=== PATIENT | male | born 1980 | race Caucasian/White ===

== ENCOUNTER 2023-12-27 20:15 | Emergency (ER) | payer BC, SELFPAY ==
--- NOTE | ~2023-12-27 | XR_ITS ---
EXAMINATION: XR chest 2V Exam Date/Time: 12/27/2023 20:35 VETERINARY TECHNOLOGY INSTRUCTOR HISTORY: STERNAL CHEST PAIN SINCE 1300 HRS TODAY. Comparison: 01/17/2018. RESULT: Lines, tubes, and devices: None. Lungs and pleura: Clear. Cardiomediastinal silhouette: Stable. Other: No acute osseous or upper abdominal finding. IMPRESSION: No acute cardiopulmonary process. Reviewed, dictated and finalized at location K. RINARY TECHNOLOGY INSTRUCTOR
[2023-12-27 20:15] VITALS: PULSE 78; O2SAT 98
[2023-12-27] MEDS: ASPIRIN 81 MG CHEWABLE TABLET 324 MG PO (20:19)
--- NOTE | 2023-12-27 20:20 | ECG_ITS ---
Test Date: 2023-12-27 20:16:22 Measurements Intervals [place] Rate: 99 P: 71 [place]: 164 QRS: 36 QRSD: 104 T: -87 QT: 326 QTc: 420 Interpretive Statements SINUS RHYTHM MARKED ST DEPRESSION IN ANTEROLAT/INF LEADS, CONSIDER SUBENDOCARDIAL INJURY BASELINE WANDER- I, II, III, AVR, AVL, AVF, V1, V3-V6 ABNORMAL ECG No previous ECG available for comparison Electronically Signed On 12-28-2023 07:00:38 STEAMER [employer]ANDY by Nicholas Begum D.O.
--- NOTE | 2023-12-27 20:20 | PC.NURSE ---
Dr Mitchell read first EKG, wanted a posterior EKG to make sure its not a posterior [place] prior to Nitro administration.
[2023-12-27 20:30] VITALS: BP 148/108; BP 170/123; PULSE 80; PULSE 89; RESP 18; RESP 20; TEMP 36.7; O2SAT 89; O2SAT 90
--- NOTE | 2023-12-27 20:33 | ECG_ITS ---
Test Date: 2023-12-27 20:24:34 Measurements Intervals [place] Rate: 76 P: 28 NE: 167 QRS: 16 QRSD: 95 T: -78 QT: 350 QTc: 395 Interpretive Statements SINUS RHYTHM INCOMPLETE RIGHT BUNDLE BRANCH BLOCK LOW QRS VOLTAGE IN PRECORDIAL LEADS ST-T WAVE ABNORMALITY IN ANTEROLAT/INF LEADS- CONSIDER SUBENDOCARDIAL INJURY BASELINE ARTIFACT- I, II, III, AVR, V1-V5 ABNORMAL ECG COMPARED WITH PRIOR ECG 12-27-23 20:16 NO SIGNIFICANT CHANGE Electronically Signed On 12-28-2023 06:59:48 BUSINESS MANAGEMENT INTERN by Nicholas Begum D.O.
--- NOTE | 2023-12-27 20:34 | ED_ITS ---
HPI - General Adult General Chief complaint: Chest Pain Stated complaint: Chest Pain Time Seen by Provider: 12/27/23 20:17 History of Present Illness HPI narrative: Macario is a 43M with a PMH of tobacco abuse and a family history of early cardiac disease that presented to the ED with chest pain. He has been having pain off and on for weeks. However, for the last 4 hours he had pain radiate to his arms he felt flushed, lightheaded, nauseated and very anxious. Related Data Home Medications Medication Instructions Recorded Confirmed clonazepam 0.5 mg tablet 0.5 mg PO TID PRN Anxiety 12/27/23 12/27/23 cyanocobalamin (vitamin B-12) 1,500 mcg PO DAILY 12/27/23 12/27/23 1,500 mcg chewable tablet ergocalciferol (vitamin D2) 50 mcg 50 mcg PO DAILY 12/27/23 12/27/23 (2,000 unit) capsule fingolimod 0.5 mg capsule 0.5 mg PO DAILY 12/27/23 12/27/23 rosuvastatin 5 mg tablet 5 mg PO DAILY 12/27/23 12/27/23 sertraline 100 mg tablet 100 mg PO DAILY 12/27/23 12/27/23 telmisartan 80 mg tablet 80 mg PO BID 12/27/23 12/27/23 Allergies Allergy/AdvReac Type Severity Reaction Status Date / Time No Known Allergies Allergy Verified 12/27/23 20:35 Review of Systems Review of Systems: All systems reviewed & are unremarkable except as noted in HPI and below PMFSH Social History Social History Smoking status: Former smoker Tobacco type: cigarettes Alcohol intake: never Substance use: never Do You Feel Safe in your Home?: Yes Lack of Transportation: No Lack of Food: Never True Current Housing: I Have Housing Concerned About Future Housing: No Difficulty Paying Gas/Electric Bills: No Difficulty Paying for Meds: No Currently Unemployed: No Education: Associate Degree Difficulty w/ Childcare or Family Care: No Spiritual care concerns: No Exam Const: General: cooperative, well developed, alert, awake and Physically active Orientation/consciousness: oriented to person, oriented to place and oriented to time Other: in moderate distress HENMT: Head: normal to inspection, normocephalic and atraumatic Ears: hearing grossly normal bilaterally and external ears normal Face/Nose/Sinus: Normal external nose present Eyes: General: appearance normal, both eyes and all related structures Periorbital: periorbital findings normal Sclera: sclerae normal Pupils: Equal, round and reactive pupils present Neck: Neck: normal visual inspection Chest: Chest palpation & inspection: normal inspection of the chest Resp: Effort & Inspection: normal respiratory effort, able to speak in complete sentences and tachypneic Auscultation: clear to auscultation bilaterally Cardio: Jugular venous distension: no JVD Rate: regular rate Other: Tachycardia GI: Inspection: normal to inspection GI Palp: Yes Soft to palpation Auscultation: normal bowel sounds Skin: General skin exam: normal color and no rashes or lesions noted Neuro: General: oriented to person, oriented to place and oriented to time Cranial nerves: Yes Equal, round and reactive pupils present Extrem: General: normal to inspection Course Course Emergency Course: Given aspirin and morphine. Ordered labs. EKG showed sinus tachycardia with a rate of 99, marked ST depression in V2-V4 and the inferior leads We contacted cardiology security system sales consultant Dr. Castaneda and sent him the EKG. 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 Vital Signs Vital signs: Vital Signs Pulse Rate 78 12/27/23 20:15 Pulse Oximetry 98 12/27/23 20:15 Oxygen Flow Rate 2 12/27/23 20:15 Temperature 98.1 F 12/27/23 20:30 Pulse Rate 82 12/27/23 21:00 Respiratory Rate 20 12/27/23 21:00 Blood Pressure 129/104 H 12/27/23 21:00 Pulse Oximetry 94 12/27/23 21:00 Oxygen Delivery Nasal Cannula 12/27/23 21:00 Oxygen Flow Rate 4 12/27/23 21:00 Medical Decision Making Vital Signs Vital Signs: Vital Signs Pulse Rate 78 12/27/23 20:15 Pulse Oximetry 98 12/27/23 20:15 Oxygen Flow Rate 2 12/27/23 20:15 Temperature 98.1 F 12/27/23 20:30 Pulse Rate 82 12/27/23 21:00 Respiratory Rate 20 12/27/23 21:00 Blood Pressure 129/104 H 12/27/23 21:00 Pulse Oximetry 94 12/27/23 21:00 Oxygen Delivery Nasal Cannula 12/27/23 21:00 Oxygen Flow Rate 4 12/27/23 21:00 Lab Data 12/27/23 20:37 12/27/23 20:37 Labs: Lab Results 12/27/23 Range/Units 20:37 WBC 9.0 (4.8-10.8) K/mm3 RBC 6.16 H (4.70-6.10) M/mm3 Hgb 17.1 (14.0-18.0) g/dL Hct 49.4 (40.0-54.0) % MCV 80.2 (78.0-102.0) fL MCH 27.8 (27.0-31.0) pg MCHC 34.6 (32-36) g/dL RDW 13.0 (11.6-14.4) % Plt Count 202 (150-420) K/mm3 MPV 11.7 H (8.7-11.0) fl Immature Gran % (Auto) 0.6 H (0.0-0.0) % Neut % (Auto) 88.2 H (50.0-70.0) % Lymph % (Auto) 3.3 L (18.0-42.0) % [place] % (Auto) 6.6 (2.0-11.0) % Eos % (Auto) 0.9 L (1.0-6.0) % Baso % (Auto) 0.4 (0.0-1.0) % Lymph # (Auto) 0.30 L (1.10-4.50) K/mm3 [place] # (Auto) 0.59 (0.10-0.90) K/mm3 Eos # (Auto) 0.08 (0.02-0.50) K/mm3 Baso # (Auto) 0.04 (0.00-0.10) K/mm3 Abs Immat Gran (auto) 0.05 H (0.00-0.00) K/mm3 Absolute Neuts (auto) 7.93 H (1.70-7.20) K/mm3 Absolute Nucleated RBC 0.00 (0.00-0.00) K/mm3 Nucleated RBC % 0.0 (0-0.0) % PT 9.9 (9.50-12.1) Seconds INR 0.9 APTT 28.9 (23.9-30.70) Sec Sodium 142 (136-145) mmol/L Potassium 3.7 (3.5-5.1) mmol/L Chloride 102 (98-108) mmol/L Carbon Dioxide 30 (21-32) mmol/L Anion Gap 10 (4-12) mmol/L BUN 13 (7-18) mg/dL Creatinine 1.07 (0.70-1.30) mg/dL Estim Creat Clear Calc 90 ml/min Estimated GFR > 60 (59 - ) Glucose 157 H (70-99) mg/dL Calculated Osmolality 297 H (285-295) mOsm/kg Calcium 9.0 (8.5-10.1) mg/dL Total Bilirubin 0.5 (0.00-1.00) mg/dL AST 28 (15-37) U/L ALT 70 H (16-63) U/L Alkaline Phosphatase 73 (46-116) U/L Troponin I 719.4 H* (0.00-60.4) ng/L NT-Pro-B Natriuret Pep 362 H (0-125) pg/mL Total Protein 7.6 (6.4-8.2) g/dL Albumin 3.9 (3.4-5.0) g/dL Lipase 56 (16-77) U/L Discharge Plan Discharge Clinical Impression: Myocardial infarction Patient Disposition: Acute Care Hospital Condition: Critical Prescriptions: No Action clonazepam 0.5 mg tablet 0.5 mg PO TID PRN (Reason: Anxiety) sertraline 100 mg tablet 100 mg PO DAILY telmisartan 80 mg tablet 80 mg PO BID rosuvastatin 5 mg tablet 5 mg PO DAILY fingolimod 0.5 mg capsule 0.5 mg PO DAILY ergocalciferol (vitamin D2) 50 mcg (2,000 unit) Capsule 50 mcg PO DAILY cyanocobalamin (vitamin B-12) 1,500 mcg Tablet,Chewable 1,500 mcg PO DAILY Follow-up/Referrals: UNKNOWN,DOCTOR [Non-Staff] -
[2023-12-27 20:46] LABS: Basophils Absolute Auto 0.04 K/mm3 (0.00-0.10); Basophils Percent Auto 0.4 % (0.0-1.0); Eosinophils Absolute Auto 0.08 K/mm3 (0.02-0.50); Eosinophils Percent Auto 0.9 % (1.0-6.0); Hematocrit 49.4 % (40.0-54.0); Hemoglobin 17.1 g/dL (14.0-18.0); Immature Granulocyte Absolute 0.05 K/mm3 (0.00-0.00); Immature Granulocyte Percent A 0.6 % (0.0-0.0); Lymphocytes Percent Auto 3.3 % (18.0-42.0); Mean Corpuscular HGB Conc 34.6 g/dL (32-36); Mean Corpuscular Hemoglobin 27.8 pg (27.0-31.0); Mean Corpuscular Volume 80.2 fL (78.0-102.0); Mean Platelet Volume 11.7 fl (8.7-11.0); Monocytes Absolute Auto 0.59 K/mm3 (0.10-0.90); Monocytes Percent Auto 6.6 % (2.0-11.0); Neutrophils Absolute Auto 7.93 K/mm3 (1.70-7.20); Neutrophils Percent Auto 88.2 % (50.0-70.0); Platelet Count Result 202 K/mm3 (150-420); Red Blood Count 6.16 M/mm3 (4.70-6.10)
[2023-12-27 20:50] VITALS: BP 139/104; PULSE 83; RESP 18; O2SAT 94
[2023-12-27] MEDS: MORPHINE SULFATE (*CRX) 4 MG/ML INJ IV PUSH (20:53)
[2023-12-27 20:56] LABS: INR 0.9; Prothrombin Time 9.9 Seconds (9.50-12.1)
[2023-12-27] MEDS: HEPARIN SODIUM 5,000 UNITS/ML VIAL 4000 UNITS IV PUSH (20:57)
[2023-12-27] MEDS: HEPARIN SOD/D5W 100 UNITS/ML 25,000 UNITS/250 ML BAG 10 UNITS IV CONT (20:57)
[2023-12-27 21:00] VITALS: BP 129/104; PULSE 82; RESP 20; O2SAT 94
[2023-12-27 21:09] LABS: Alanine Aminotransferase 70 U/L (16-63); Albumin Level 3.9 g/dL (3.4-5.0); Alkaline Phosphatase 73 U/L (46-116); Anion Gap 10 mmol/L (4-12); Aspartate Amino Transferase 28 U/L (15-37); Bilirubin,Total 0.5 mg/dL (0.00-1.00); Blood Urea Nitrogen 13 mg/dL (7-18); Carbon Dioxide 30 mmol/L (21-32); Chloride 102 mmol/L (98-108); Estimated CRCL calculation 90 ml/min; Estimated Glomerular Filt Rate > 60; Glucose 157 mg/dL (70-99); Lipase 56 U/L (16-77); NT Pro B Type Natriuretic Pept 362 pg/mL (0-125); Osmolality Calculated 297 mOsm/kg (285-295); Potassium 3.7 mmol/L (3.5-5.1); Sodium 142 mmol/L (136-145); Total Protein 7.6 g/dL (6.4-8.2)
[2023-12-27 21:21] LABS: Troponin I 719.4 ng/L (0.00-60.4)
[2023-12-27 21:35] LABS: Partial Thromboplastin Time 28.9 Sec (23.9-30.70)
--- NOTE | 2023-12-27 21:55 | PM.CNCAR ---
Assessment and Plan Assessment and plan (1) NSTEMI (non-ST elevated myocardial infarction): Code(s): I21.4 - Non-ST elevation (NSTEMI) myocardial infarction Status: Acute Plan NSTEMI high risk was recurrent chest pain and diffuse EKG changes hHypertension controlled plan Heparin Aspirin Statin Ticagrelor Emergency left heart catheterization Echocardiogram History of Present Illness History of Present Illness Consult date/time: 12/27/23 21:55 Reason For Visit: Chest Pain Narrative: 43-year-old male patient presents also with acute episode of chest pain started this morning at 11:00 a.m.. Chest pain was severe retrosternal radiating to both arms. Chest pain was pressure-like was no precipitating or relieving factors. Pain associated with nausea Chest pain lasts for 1 hour and resolved spontaneously before coming back again. Chest pain has been recurrent for several times. On arrival to ED an outpatient patient was having severe chest pain an EKG showing ST depression anterior leads. Review of Systems Review of Systems: All systems reviewed & are unremarkable except as noted in HPI and below Meds Home Medications and Allergies Home Medications Medication Instructions Recorded Confirmed Type clonazepam 0.5 mg tablet 0.5 mg PO PRN 12/27/23 12/27/23 History rosuvastatin 5 mg tablet 5 mg PO DAILY 12/27/23 12/27/23 History sertraline 100 mg tablet 100 mg PO DAILY 12/27/23 12/27/23 History telmisartan 80 mg tablet 80 mg PO DAILY 12/27/23 12/27/23 History Allergies Allergy/AdvReac Type Severity Reaction Status Date / Time No Known Allergies Allergy Verified 12/27/23 20:35 Vital Signs Vital Signs - 24 hr 12/27/23 20:30 12/27/23 20:15 12/27/23 20:15 Temperature 36.7 C Pulse Rate 80 78 Respiratory Rate 20 Blood Pressure 170/123 H Pulse Oximetry 89 L 98 Oxygen Delivery Room Air Oxygen Flow Rate 2 12/27/23 20:30 12/27/23 20:50 12/27/23 21:00 Temperature Pulse Rate 89 83 82 Respiratory Rate 18 18 20 Blood Pressure 148/108 H 139/104 H 129/104 H Pulse Oximetry 90 94 94 Oxygen Delivery Nasal Cannula Nasal Cannula Nasal Cannula Oxygen Flow Rate 4 4 4 Exam Const: General: comfortable and no acute distress Other: Able to lie flat HENMT: Face/Nose/Sinus: Normal nares present and no epistaxis Mouth: Yes moist mucous membranes Eyes: Sclera: sclerae normal Pupils: Equal, round and reactive pupils present Neck: Neck: supple and no JVD Carotids: no bruits Resp: Auscultation: clear to auscultation bilaterally and lung sounds not diminished Other: No chest wall tenderness Cardio: Rate: regular rate Rhythm: regular rhythm Heart sounds: no gallops, no murmurs and no rubs GI: GI Palp: Yes Soft to palpation and No Tenderness to palpation present (GI) Auscultation: normal bowel sounds Skin: General skin exam: normal color, rashes and/or lesions noted and no erythema Other: Warm Neuro: Cranial nerves: Yes Equal, round and reactive pupils present Speech: normal speech Other: No obvious focal deficit or facial asymmetry Extrem: General: no edema Other: Normal capillary refills Intact distal pulses. Results Labs and Meds 12/27/23 20:37 12/27/23 20:37 Lab results: Cardiac Enzymes 12/27/23 Range/Units 20:37 AST 28 (15-37) U/L Troponin I 719.4 H* (0.00-60.4) ng/L Coagulation 12/27/23 Range/Units 20:37 PT 9.9 (9.50-12.1) Seconds APTT 28.9 (23.9-30.70) Sec CBC 12/27/23 Range/Units 20:37 WBC 9.0 (4.8-10.8) K/mm3 RBC 6.16 H (4.70-6.10) M/mm3 Hgb 17.1 (14.0-18.0) g/dL Hct 49.4 (40.0-54.0) % Plt Count 202 (150-420) K/mm3 Lymph # (Auto) 0.30 L (1.10-4.50) K/mm3 [place] # (Auto) 0.59 (0.10-0.90) K/mm3 Eos # (Auto) 0.08 (0.02-0.50) K/mm3 Baso # (Auto) 0.04 (0.00-0.10) K/mm3 Comprehensive Metabolic Panel 12/27/23 Range/Units 20:37 Sodium 142 (136-145) mmol/L Potassium 3.7 (3.5-5.1) mmol/L Chloride 102 (98-108) mmol/L Carbon Dioxide 30 (21-32) mmol/L BUN 13 (7-18) mg/dL Creatinine 1.07 (0.70-1.30) mg/dL Glucose 157 H (70-99) mg/dL Calcium 9.0 (8.5-10.1) mg/dL AST 28 (15-37) U/L ALT 70 H (16-63) U/L Alkaline Phosphatase 73 (46-116) U/L Total Protein 7.6 (6.4-8.2) g/dL Albumin 3.9 (3.4-5.0) g/dL Patient Weight 12/27/23 23:59 Weight 101.6 kg
== END 2023-12-27 21:15 | disposition short-term general hospital (02) ==
PROVIDERS: Emergency Provider Family Medicine
DX: I21.9 Acute myocardial infarction, unspecified (principal); Z79.899 Other long term (current) drug therapy; Z87.891 Personal history of nicotine dependence
CPT/HCPCS: 36415; 71046; 80053; 83690; 83880; 84484; 85025; 85610; 85730; 93005; 96365; 96375; 99285; A9270; J1644; J2270

== ENCOUNTER 2023-12-27 22:00 | Inpatient (IN) | payer BC, SELFPAY ==
[2023-12-27] VITALS (9 sets, daily range): BP systolic 116–137; BP diastolic 67–88; PULSE 85–89; RESP 12–22; TEMP 36.8; O2SAT 90–96
--- NOTE | 2023-12-27 22:39 | P.CONCA_ITS ---
Assessment and Plan Assessment and plan (1) NSTEMI (non-ST elevated myocardial infarction): Code(s): I21.4 - Non-ST elevation (NSTEMI) myocardial infarction Status: Acute Plan NSTEMI currently chest pain free but pain was recurrent earlier with EKG changes concerning for multivessel disease HTN Plan Emergency after consideration Heparin Aspirin Integrilin Statin History of Present Illness History of Present Illness Consult date/time: 12/27/23 22:39 Reason For Visit: NSTEMI Narrative: 43-year-old male patient presents also with acute episode of chest pain started this morning at 11:00 a.m.. Chest pain was severe retrosternal radiating to both arms. Chest pain was pressure-like was no precipitating or relieving factors. Pain associated with nausea Chest pain lasts for 1 hour and resolved spontaneously before coming back again. Chest pain has been recurrent for several times. On arrival to ED an outpatient patient was having severe chest pain an EKG showing ST depression anterior leads. Review of Systems Review of Systems: All systems reviewed & are unremarkable except as noted in HPI and below Meds Home Medications and Allergies Home Medications Medication Instructions Recorded Confirmed Type clonazepam 0.5 mg tablet 0.5 mg PO PRN 12/27/23 12/27/23 History rosuvastatin 5 mg tablet 5 mg PO DAILY 12/27/23 12/27/23 History sertraline 100 mg tablet 100 mg PO DAILY 12/27/23 12/27/23 History telmisartan 80 mg tablet 80 mg PO DAILY 12/27/23 12/27/23 History Allergies Allergy/AdvReac Type Severity Reaction Status Date / Time No Known Allergies Allergy Verified 12/27/23 20:35 Exam Const: General: comfortable and no acute distress Other: Able to lie flat HENMT: Face/Nose/Sinus: Normal nares present and no epistaxis Mouth: Yes moist mucous membranes Eyes: Sclera: sclerae normal Pupils: Equal, round and reactive pupils present Neck: Neck: supple and no JVD Carotids: no bruits Resp: Auscultation: clear to auscultation bilaterally and lung sounds not diminished Other: No chest wall tenderness Cardio: Rate: regular rate Rhythm: regular rhythm Heart sounds: no gallops, no murmurs and no rubs GI: GI Palp: Yes Soft to palpation and No Tenderness to palpation present (GI) Auscultation: normal bowel sounds Skin: General skin exam: normal color, rashes and/or lesions noted and no e rythema Other: Warm Neuro: Cranial nerves: Yes Equal, round and reactive pupils present Speech: normal speech Other: No obvious focal deficit or facial asymmetry Extrem: General: no edema Other: Normal capillary refills Intact distal pulses.
--- NOTE | 2023-12-27 22:41 | WPDCARDPROC ---
Cardiac Cath Procedure Note Date of procedure:: 12/27/23 Performing physician:: Luis Felipe Caceres MD Indication:: NSTEMI Brief clinical history:: presented with recurrent chest pain Procedure Procedure performed:: [place] and coronary angiogram Insertion of IABP Sedation/Medication given:: moderate sedation in presence of RN under my supervision and used versed 1 mg of versed and 100 mch of fentanyl with continuous monitoring of vital signs, O2 saturation and EKG. 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 LCX: distal LCX 90% stenosis. 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
--- NOTE | 2023-12-27 23:20 | ECG_ITS ---
Test Date: 2023-12-27 23:28:58 Measurements Intervals [place] Rate: 83 P: 1 [place]: 132 QRS: 24 QRSD: 89 T: 89 QT: 374 QTc: 442 Interpretive Statements SINUS RHYTHM NONSPECIFIC ST & T-WAVE ABNORMALITY- INF/HIGH LAT LEADS BASELINE ARTIFACT- V6 BORDERLINE ECG Compared to ECG 12/27/2023 20:24:34 Possible ischemia no longer present Electronically Signed On 12-28-2023 06:56:00 PRINT PRODUCTION COORDINATOR by Nicholas Begum D.O.
[2023-12-27] MEDS: NITROGLYCERIN/D5W 200 MCG/ML 50 MG/250 ML BTL IV CONT (23:30)
[2023-12-27] MEDS: EPTIFIBATIDE 20 MG/10 ML VIAL 18 MG IV PUSH (23:30)
[2023-12-27] MEDS: EPTIFIBATIDE 0.75 MG/ML 75 MG/100 ML VIAL 16.26 MG IV CONT (23:30)
[2023-12-28] VITALS (17 sets, daily range): BP systolic 67–143; BP diastolic 50–80; PULSE 70–95; RESP 12–20; TEMP 36.8; O2SAT 94–97
[2023-12-28 00:01] LABS: INR 1.1; Prothrombin Time 14.7 Seconds (11.1-14.7)
[2023-12-28 00:21] LABS: Basophils Percent Auto 0.3 % (0.2-1.2); Eosinophils Percent Auto 0.2 % (0-4.4); Hematocrit 44.4 % (42.0-52.0); Hemoglobin 15.5 g/dL (14.0-18.0); Immature Granulocyte Absolute 0.05 K/mm3 (0.00-0.031); Immature Granulocyte Percent A 0.4 % (0-0.5); Lymphocytes Percent Auto 0.8 % (18.3-44.2); Mean Corpuscular HGB Conc 34.9 g/dl (32-36); Mean Corpuscular Hemoglobin 28.3 pg (26-34); Mean Platelet Volume 11.5 fl (7.4-10.4); Monocytes Absolute Auto 0.6 K/mm3 (0.1-0.6); Monocytes Percent Auto 4.7 % (2.6-8.5); Neutrophils Absolute Auto 11.3 K/mm3 (1.3-6.7); Neutrophils Percent Auto 93.6 % (45.5-73.1); Platelet Count Result 183 k/mm3 (150-375); Red Blood Count 5.48 M/mm3 (4.6-6.20); Red Cell Distribution Width 13.2 % (11.5-14.5); White Blood Count 12.1 K/mm3 (4.5-10.0)
[2023-12-28] MEDS: HEPARIN SOD/D5W 100 UNITS/ML 25,000 UNITS/250 ML BAG 10 UNITS IV CONT (00:23)
--- NOTE | 2023-12-28 00:29 | PC.NURSE ---
attempt call report to [facility] informed that bed may to going to a patient in house. report not given at this time
[2023-12-28 00:30] LABS: Partial Thromboplastin Time > 200.0 Seconds (22.3-36.8)
[2023-12-28] MEDS: SODIUM CHLORIDE 0.9% IV 1,000 ML 125 ML IV CONT (00:32)
--- NOTE | 2023-12-28 00:34 | ADMGEN ---
This patient, Macario Hughes, was admitted to Intensive Care Unit-8 on 12/27/23 at 2309. Patient/family oriented to hospital policies and general routines including ID bracelet, bed and alarms, visiting hours, pain management, procedures, bathroom and other care routines, personal items, smoking policy, room service/diet, and visiting hours. Information on how to activate the Rapid Response Team has been discussed. Patient/Family are encouraged to report perceived risks to care and to ask questions if they do not understand what they are told or what they should do.
--- NOTE | 2023-12-28 00:35 | PC.NURSE ---
[facility] ambulance put on hold due to [facility] nurse Shell saying there is a current rapid at [facility] that may take bed.
[2023-12-28 01:01] LABS: Alanine Aminotransferase 63 U/L (6-50); Alkaline Phosphatase 64 U/L (38-126); Anion Gap 8 mmol/L (4-12); Aspartate Amino Transferase 50 U/L (17-59); Bilirubin,Total 0.7 mg/dL (0.2-1.3); Blood Urea Nitrogen 13 mg/dL (9-20); Calcium 8.7 mg/dL (8.4-10.2); Carbon Dioxide 25 mmol/L (22-30); Chloride 103 mmol/L (98-107); Cholesterol 179 mg/dL (0-200); Estimated CRCL calculation 116 ml/min; Estimated Glomerular Filt Rate > 60; Glucose 129 mg/dL (65-110); HDL Direct 30 mg/dL; Potassium 4.1 mmol/L (3.4-5.0); Sodium 136 mmol/L (137-145); Triglycerides 81 mg/dL (<150)
[2023-12-28 01:13] LABS: LDL Cholesterol Direct 125 mg/dL
--- NOTE | 2023-12-28 02:15 | PC.NURSE ---
Pt c/o difficulty urinating and noted to be straining. Balloon pump dressing noted to be saturated, manual pressure applied above the insertion site low BP noted and pt alert but diaphoretic. Dressing taken down and oozing noted from insertion site. manual pressure maintained for 20 min, blood pressure improved. Attempt abdalla with regular abdalla but unable to pass the prostate. Balloon pump functioning properly Assisted bp on pump 102/65. New pressure dressing and surgicel applied to right groin and manual pressure maintained. Pt prepped for transferred via ambulance with RN
--- NOTE | 2023-12-28 02:38 | PC.NURSE ---
meds to beds not done due to patient transfer to [facility].
--- NOTE | 2023-12-28 02:39 | PC.NURSE ---
Patient on Integrilin and heparin, bleeding started in right groin. Manual pressure applied. Patient diaphoretic and blood pressures low. Nitro drip stopped and NS bolus started. Heparin drip stopped. Patient unable to urinate; cudae 16 upper sorbian catheter placed and 475 ml returned, dark clear yellow urine. BP improved, groin still oozing. Manual pressure continued. Dr Caceres called and made aware of bleeding and start of hematoma. OK with stopping nitro and heparin and orders Integrilin to be stopped as well. OK with NS bolus and catheter placement. Hemostasis achieved, surgicel applied, covered with 4X4 and tegaderm. Pressure dressing then applied over tegaderm. Patient transported by [facility] out of ICU at 0230.
[2024-01-01 10:41] LABS: Activated Clotting Time 312 SEC (74-137)
== END 2023-12-28 02:40 | disposition short-term general hospital (02) | DRG 272 ==
PROVIDERS: Admitting Provider Internal Medicine Interventional Cardiology; Visit Provider Internal Medicine Interventional Cardiology
PROC: 4A023N7 Measurement of Cardiac Sampling and Pressure, Left Heart, Percutaneous Approach (ICD-10-PCS; CPT 93452; principal; 2023-12-27 22:00)
PROC: 4A023N7 Measurement of Cardiac Sampling and Pressure, Left Heart, Percutaneous Approach (ICD-10-PCS; 2023-12-27 22:00)
DX: I21.4 Non-ST elevation (NSTEMI) myocardial infarction (principal); I10 Essential (primary) hypertension; I25.10 Atherosclerotic heart disease of native coronary artery without angina pectoris
CPT/HCPCS: 33967; 36415; 80053; 80061; 84484; 85025; 85610; 85730; 93005; 93458; C1769; C1887; C1894; J1327; J1644; J2003; J2305; J7030; J7040